=== PATIENT | female | born 1975 | race Caucasian/White ===

== ENCOUNTER → 2016-09-18 | Outpatient (CLI) | payer BC ==
[2016-09-18 13:18] LABS: BASO % 0.2 %; BASO ABS # 0.02 K/uL (0-0.2); COMPLETE YES; EOS % 0.6 %; HEMATOCRIT 36.8 % (37-47); IG% 0.2 %; LYMPH % 20.3 %; LYMPH ABS # 1.68 K/uL (1.2-3.4); MEAN CORPUSCULAR HEMOGLOBIN 32.5 pg (25-34); MEAN CORPUSCULAR HGB CONC 35.3 g/dl (32-36); MEAN PLATELET VOLUME 9.6 fL (7.4-10.4); MONO % 5.3 %; NEUT % 73.4 %; PLATELET COUNT 288 K/uL (130-400); WHITE BLOOD COUNT 8.28 K/uL (4.8-10.8)
[2016-09-21 13:25] LABS: CHLAMYDIA TRACH RNA*** NOT DETECTED (NOT DETECTED); GC (NEIS GONORRHOEAE)RNA** NOT DETECTED (NOT DETECTED)
== END | disposition home or self-care (01) ==
LOC: C.LAB1850 11:32
PROVIDERS: ATTEND Obstetrics & Gynecology
DX: O09.529 Supervision of elderly multigravida, unspecified trimester (principal); O23.40 Unspecified infection of urinary tract in pregnancy, unspecified trimester

== ENCOUNTER → 2016-10-16 | Outpatient (CLI) | payer BC ==
[2016-10-16 16:28] LABS: GTGD 50 Grams
== END | disposition home or self-care (01) ==
LOC: C.LAB1850 14:32
PROVIDERS: ATTEND Obstetrics & Gynecology
DX: O09.522 Supervision of elderly multigravida, second trimester (principal)

== ENCOUNTER → 2017-01-11 | Outpatient (CLI) | payer BC ==
[2017-01-11 14:16] LABS: GTGD 50 Grams
== END | disposition home or self-care (01) ==
LOC: C.LAB1850 10:09
PROVIDERS: ATTEND Obstetrics & Gynecology
DX: O09.523 Supervision of elderly multigravida, third trimester (principal); Z3A.00 Weeks of gestation of pregnancy not specified

== ENCOUNTER → 2017-02-21 | Outpatient (CLI) | payer BC ==
[2017-02-21 14:26] LABS: URINE APPEARANCE CLEAR (CLEAR); URINE BILIRUBIN NEG (NEG); URINE COLOR YELLOW; URINE EPITHELIAL CELL AUTO 20-30 /lpf (0-5); URINE NITRITE NEG (NEG); URINE PH 7.5 (4.5-7.5); URINE SPECIFIC GRAVITY 1.013 (1.000-1.030); UROBILINOGEN NEG (NEG)
[2017-02-21 14:28] LABS: MANUAL MICROSCOPIC REQUIRED? NO; REVIEW REQ? NO
== END | disposition home or self-care (01) ==
LOC: C.LABSPEC 13:33
PROVIDERS: ATTEND Obstetrics & Gynecology
DX: O09.523 Supervision of elderly multigravida, third trimester (principal); Z3A.00 Weeks of gestation of pregnancy not specified

== ENCOUNTER → 2017-03-08 | Outpatient (CLI) | payer BC | END | disposition home or self-care (01) | LOC: C.LABSPEC 10:50 | PROVIDERS: ATTEND Obstetrics & Gynecology | DX: O09.523 Supervision of elderly multigravida, third trimester (principal); Z3A.00 Weeks of gestation of pregnancy not specified ==

== ENCOUNTER 2017-04-01 15:27 | Inpatient (IN) | payer BC ==
[~2017-04-01] VITALS: Ht 165.1 cm; Wt 64.5 kg
[2017-04-01 16:28] VITALS: Ht 165.1 cm; Wt 64.5 kg
[2017-04-01 16:46] LABS: HEMATOCRIT 35.7 % (37-47); MEAN CELL VOLUME 93.7 fL (80-100); MEAN CORPUSCULAR HEMOGLOBIN 32.5 pg (25-34); MEAN CORPUSCULAR HGB CONC 34.7 g/dl (32-36); MEAN PLATELET VOLUME 10.7 fL (7.4-10.4); PLATELET COUNT 175 K/uL (130-400); RED BLOOD COUNT 3.81 M/uL (4.2-5.4); WHITE BLOOD COUNT 8.79 K/uL (4.8-10.8)
[2017-04-01] MEDS ORDERED: OXYTOCIN 30 UNITS/500ML NSS IV ONE (19:15)
[2017-04-01] MEDS ORDERED: BENZOCAINE 20% AER SPR 82.5 GM CAN EXT PRN (20:00)
[2017-04-01] MEDS ORDERED: SUPERCREAM 0.870 % 15GM JAR EXT PRN (20:00)
[2017-04-01] MEDS ORDERED: DIPHTHERIA/TETANUS/PERTUSSIS 0.5 ML SYR/VIAL IM. ONE (20:00)
[2017-04-01] MEDS ORDERED: OXYTOCIN 30 UNITS/500ML NSS IV PRN (20:00)
[2017-04-01] MEDS ORDERED: HYDROCORTISONE ACETATE 25 MG SUPP PR PRN (20:00)
[2017-04-01] MEDS ORDERED: IBUPROFEN 600 MG TAB PO PRN (20:00)
[2017-04-01] MEDS ORDERED: ACETAMINOPHEN/CODEINE 300/30MG TAB PO PRN ×2 (20:00)
[2017-04-01] MEDS: DOCUSATE SODIUM 100 MG CAP PO SCH (20:00)
[2017-04-01] MEDS ORDERED: ACETAMINOPHEN 325 MG TAB PO PRN (20:00)
[2017-04-01] MEDS ORDERED: LANOLIN OINT EXT PRN ×2 (20:00)
--- NOTE | 2017-04-01 20:10 | Vaginal Delivery Summary ---
Vaginal Delivery Summary Findings: Viable male with Apgars of 9 and 9 delivered spontaneously over a midline second-degree laceration core blood samples obtained. Placenta delivered spontaneously. Laceration repair with 4-0 Vicryl in a routine fashion. Estimated blood loss 300 cc. Sponge and needle count is correct. Labor note: The patient is a 42-year-old 3 para 1102 with an EDC of by first trimester ultrasound who was admitted in active labor. Patient states she had been having prodromal contractions for the previous 12 hours but then increased in intensity just prior to discharge. Patient is not ruptured membranes or vaginal bleeding. The patient's last delivery was a 36 week delivery. She was offered prophylactic 17 hydroxyprogesterone injections to decrease risk of but the patient declined. The patient declined any genetics evaluation for advanced maternal age. The patient declined to follow maternal age greater than 40 protocol and declined. Nonstress tests, growth scan ultrasounds, and third trimester amniotic fluid indices. Patient's blood type is O- antibody negative, she declined RhoGAM stating the father of the baby was Rh-. Hepatitis B negative rubella immune, normal 1 hour Glucola 2 , neg 3rd trimester beta strep culture. Upon admission the patient was 5 cm dilated 100% effaced and 0 station. Tracing was category 1. Patient ambulated for about 2 hours and was rechecked with no cervical change. She had artificial rupture membranes with clear fluid. Over the next hour the patient progressed both dilatation and began her second stage. She pushed for approximately 10 minutes delivering a viable male infant with description as above cord was clamped and cut cord blood samples obtained. Placenta was delivered spontaneously. Inspection of the perineum showed a midline second-degree laceration, this was repaired with 4-0 Vicryl in a routine fashion. Estimated blood loss 300 cc. Sponge and needle count was correct.
[2017-04-01 22:20] VITALS: BP 112/64; PULSE 83; TEMP 36.7
[2017-04-01 23:30] VITALS: BP 101/58; PULSE 69; TEMP 36.6
[2017-04-02] VITALS (7 sets, daily range): BP systolic 87–143; BP diastolic 48–78; PULSE 54–64; TEMP 36.6–36.9; O2SAT 97–99
--- NOTE | 2017-04-02 05:51 | OB/GYN Progress Note ---
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 Subjective conversation w/ patient, physical exam, chart review, lab review Ambulation: limited ambulation (to bathroom thus far) Voiding: no voiding problems Passing Gas: Yes Diet Tolerance: Regular Diet Lochia: Moderate (small to moderate per pt) Feeding Type: Breast Feeding Pain: Occasional low abd cramping Review of Systems Constitutional: No fever, No chills Respiratory: No cough, No shortness of breath Cardiac: No chest pain Abdomen: No nausea, No vomiting, No diarrhea Female : No dysuria Objective Vital Signs Date Time Temp Pulse Resp B/P (MAP) Pulse Ox O2 Delivery O2 Flow Rate FiO2 04/02/17 03:40 36.9 63 16 91/52 (65) 04/01/17 23:30 36.6 69 16 101/58 (72) 04/01/17 23:30 Room Air 04/01/17 22:20 36.7 83 18 112/64 (80) Physical Exam General Appearance: WELL-APPEARING, WD/WN, NO APPARENT DISTRESS Respiratory/Chest: lungs clear, normal breath sounds Cardiovascular: regular rate, rhythm Abdomen: normal bowel sounds, non tender, soft Fundus: Firm, Tender (minimal), Relation to Umbilicus (at umbilicus) Extremities: normal range of motion, non-tender, no pedal edema, no calf tenderness Laboratory Results Last 24 Hours Test 04/01/17 16:36 04/02/17 04:44 White Blood Count 8.79 K/uL Red Blood Count 3.81 M/uL Hemoglobin 12.4 g/dL Hematocrit 35.7 % Mean Corpuscular Volume 93.7 fL Mean Corpuscular Hemoglobin 32.5 pg Mean Corpuscular Hemoglobin Concent 34.7 g/dl RDW Standard Deviation 46.5 fL RDW Coefficient of Variation 13.6 % Platelet Count 175 K/uL Mean Platelet Volume 10.7 fL Assessment and Plan Post- Day Number: 1 Continue Routine Care: 42yo s/p , now PPD #1. - Blood type O neg. Has previously declined RhoGAM due to also Rh negative. GBS negative. Rubella immune. - Vital signs reviewed and stable. Relative hypotension most recently. Encourage PO fluids. - Pain/cramping controlled without PO meds thus far. - No leg swelling or tenderness on calf palpation. Encourage ambulation. - Encourage breast feeding. - Hemoglobin preop 12.4, post-delivery pending. Bleeding has improved. Continue to monitor clinically. - Continue routine post-vaginal delivery care. - Pt agreed with above plan, all current questions answered. Earnest Irvin MD, PGY1 Deposition Operator Physician Supervision Note: I interviewed and examined the patient. Discussed with Dr. Jonas and agree with findings and plan as documented in the note. Any exceptions or clarifications are listed here: [None] Documented By: Addi Salter Resident Tracking Resident Involvement: Resident Care Provided Care Provided: OB Delivery (morning rounds)
[2017-04-02] MEDS: DOCUSATE SODIUM 100 MG CAP PO SCH ×2 (07:55→19:22)
[2017-04-02] MEDS: PRENATAL VITAMIN TAB PO SCH (07:55)
[2017-04-02] MEDS: FERROUS SULFATE 325 MG TAB PO SCH (07:55)
[2017-04-02 09:19] LABS: HEMATOCRIT 36.1 % (37-47)
[2017-04-02] MEDS ORDERED: BISACODYL 5 MG TABEC PO SCH (20:00)
--- NOTE | 2017-04-03 07:08 | OB/GYN Progress Note ---
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 Subjective conversation w/ patient, physical exam, chart review, lab review Ambulation: limited ambulation (to bathroom) Voiding: no voiding problems Passing Gas: Yes Diet Tolerance: Regular Diet Lochia: Small Feeding Type: Breast Feeding Pain: denies much pain/cramping Review of Systems Constitutional: No fever, No chills Respiratory: No cough, No shortness of breath Cardiac: No chest pain Abdomen: No nausea, No vomiting, No diarrhea Female : No dysuria Objective Vital Signs Date Time Temp Pulse Resp B/P (MAP) Pulse Ox O2 Delivery O2 Flow Rate FiO2 04/02/17 23:40 36.7 60 16 95/57 (70) 97 Room Air 04/02/17 20:40 36.7 63 16 108/71 (83) 97 Room Air 04/02/17 20:40 Room Air 04/02/17 15:30 36.7 55 18 143/78 (99) 99 Room Air 04/02/17 15:30 99 Room Air 04/02/17 11:29 36.6 54 18 104/64 (77) 99 Room Air 04/02/17 08:00 Room Air 04/02/17 08:00 110/72 (85) 04/02/17 07:16 36.6 64 16 87/48 (61) 98 Room Air Physical Exam General Appearance: WELL-APPEARING, WD/WN, NO APPARENT DISTRESS Respiratory/Chest: lungs clear, normal breath sounds Cardiovascular: regular rate, rhythm Abdomen: normal bowel sounds, non tender, soft Fundus: Firm, Non-Tender, Relation to Umbilicus (approx two down) Extremities: normal range of motion, non-tender, no pedal edema, no calf tenderness Laboratory Results Last 24 Hours Test 04/02/17 08:52 Hemoglobin 12.1 g/dL Hematocrit 36.1 % Assessment and Plan Post- Day Number: 2 Continue Routine Care: 42yo s/p , now PPD #2. - Blood type O neg. Has previously declined RhoGAM (and babys blood type is A negative). GBS negative. Rubella immune. - Vital signs reviewed and stable, including BP variability. Will discuss on rounds. - Pain controlled without PO meds thus far. - No leg swelling or tenderness on calf palpation. Encourage ambulation. - Encourage breast feeding. - Hemoglobin preop 12.4, post-delivery 12.1. Bleeding has improved. Continue to monitor clinically. - Continue routine post-vaginal delivery care. - Pt agreed with above plan, all current questions answered. Earnest Irvin MD, PGY1 Sash Installer Physician Supervision Note: I was present with Dr. Irvin during the history and exam. I discussed the case with the resident and agree with the findings and plan as documented in the note. Any exceptions or clarifications are listed here: PPD#2 doing well. Discharge home today, instructions discussed. Documented By: Dyana Belle Resident Tracking Resident Involvement: Resident Care Provided Care Provided: OB Delivery (morning rounds)
[2017-04-03 07:45] VITALS: BP 100/64; PULSE 60; TEMP 36.4; O2SAT 98
--- NOTE | 2017-04-03 08:29 | Discharge Instructions ---
Discharge Instructions Date of Service Apr 03, 2017. Admission Reason for Admission: R/O Labor Discharge Discharge Diagnosis / Problem: Recovery from vaginal delivery Discharge Goals Goal(s): Routine recovery after delivery Medications Continue Dispensed Medications: supercream, dermaplast, tucks, lansinoh Activity Recommendations Activity Limitations: per Instructions/Follow-up section . Instructions / Follow-Up Instructions / Follow-Up ACTIVITY RECOMMENDATIONS: * Gradual return to full activity over the next 2-3 weeks. * No lifting - nothing heavier than baby over the next 2-3 weeks. * Do not engage in vigorous exercise, sexual activity or sports until cleared by your physician. * Do not drive or operate any motorized equipment until cleared by your physician. * You may shower/bathe daily. MEDICATIONS: For discomfort or pain, you may use Acetaminophen (Tylenol), Ibuprofen (Advil), or Naproxen (Aleve) following the package directions. For constipation you may use Colace following the package directions. BREAST CARE: If you are not breast feeding: * Wear a supportive bra 24 hours a day for one to two weeks. * Avoid stimulating your breasts and nipples as much as possible during the first few weeks after delivery. * When taking a shower, have the warm water hit your back, not breasts. * When your breasts feel full, apply ice packs. Usually three to four times a day helps ease the discomfort. * Take a mild pain medication (Tylenol / Motrin) when you are uncomfortable. If breast feeding: * Use breast milk to lubricate nipples. Lansinoh cream may be used for sore nipples. You do not need to remove cream prior to breast feeding. If using a different brand of cream, check the label for directions regarding removal of cream prior to nursing. * Wear a supportive bra. * If having problems with breasts or breast feeding, call a loss prevention consultant or your health care provider. EPISIOTOMY CARE: After delivery, if you have an episiotomy (stitches), the following steps will ease discomfort and aid healing. * For the first 24 hours after delivery, place ice packs next to your episiotomy to help reduce swelling. * After the first 24 hour-period, sitz baths, either portable or in the tub, are suggested. A shower with a shower arm sprayed over the episiotomy may be comforting. * Kristi care should be done after each voiding and bowel movement. Squirt warm water from a plastic bottle over the perineum (region of the body between the anus and urinary opening) and pat dry. * Use Dermoplast to ease discomfort. Shake container. [place] directly over the episiotomy. Place a Tucks on a clean sanitary pad next to your episiotomy. SPECIAL CARE INSTRUCTIONS: When you are discharged from the hospital, it is important for you to follow the instructions listed below: * During the first week at home, you should be able to care for yourself and your baby. In addition, the usual light household activities are encouraged. * Limit your activities to the way you feel. Do not try to clean the house or move furniture. Be sensible. * If you actively engage in sports and have done so up until the time of your delivery, you may resume these activities as soon as you feel able. This may take up to one month or even longer. Use good judgment. * Continue to take your vitamins for at least six weeks after the of your baby. * Your diet need not be limited unless you were on a special diet before your delivery. Breast-feeding mothers need around 2500 calories per day and at least 64-80 ounces of fluid per day (8 to 10 glasses). * You should eat foods from the four major food groups. Crash diets or fad diets are to be avoided. Eating lean meats, fresh fruits and vegetables, low-fat dairy products, high fiber foods and a regular exercise program, will help you get back to your pre- weight without putting your health at risk. * Constipation is sometimes a problem after delivery. Take a mild laxative as needed. If breast feeding, Milk of Magnesia is acceptable to use. You may use a suppository or Fleets enema if no episiotomy. * A daily shower or tub bath is suggested. Be sure to thoroughly and gently dry the perineum. * A bloody vaginal discharge will usually continue until around four weeks post . A small amount of bleeding may continue for as long as six weeks. Vaginal discharge changes from the bright red bleeding after delivery to pink then brownish and finally yellowish-pink before becoming white and disappearing. * Bleeding may increase with activity. Your first period may come in 4-8 weeks. If you are breast feeding, your period may be delayed even longer. * [place] (sex) can begin whenever both you and your partner feel comfortable and do not have any form of genital infection. It is recommended that you wait at least six weeks for internal and external healing to occur. If you have questions, please talk to your health care practitioner. A condom should be used to prevent infection and . * Foreplay, gentle intercourse and lubrication is very important the first several times to prevent pain. A water-based lubricant such as K-Y jelly or Astroglide may be used. * If you have RH negative blood and your baby is RH positive, you will receive RHOGAM by injection prior to discharge. The nurse will give you a card to keep with you that has the date and place that you received RHOGAM after delivery. * During your care, you had a Rubella screen done to check for the presence of rubella antibodies in your blood. If your test was negative, you will receive a Rubella vaccine prior to discharge. This vaccine may cause a fever, soreness at the injection site and flu-like symptoms. If these symptoms persist, notify your health care practitioner. is not advised for one month after a Rubella vaccine. * Verbalizes understanding of car seat law as reviewed with patient nursing. * Car Seat hand-out given and reviewed with patient by nursing. * Shaken baby information reviewed with patient by nursing. Call you doctor if: * Heavy bleeding (saturating several pads an hour) or passing clots the size of your fist. * A fever >101 degrees F (38.3 degrees C) on two occasions four hours apart and /or chills. * Unusual pain in the pelvic or vaginal areas. * "Baby Blues" lasting longer than two weeks. If you have any questions or concerns, call your health care practitioner at . FOLLOW UP VISIT: * Please call the office at to schedule a 6 week examination. It is important you keep this appointment. It is important for you to make arrangements for either yearly or twice yearly check-ups thereafter. Current Hospital Diet Patient's current hospital diet: Regular OB Diet Discharge Diet Recommended Diet: Regular OB Diet Pending Studies Studies pending at discharge: no Medical Emergencies . Who to Call and When: Medical Emergencies: If at any time you feel your situation is an emergency, please call 911 immediately. . Non-Emergent Contact Non-Emergency issues call your: Irrigation Supervisor . . "Provider Documentation" section prepared by Earnest Irvin. . VTE Core Measure Inpt VTE Proph given/why not?: Treatment not indicated
[2017-04-03] MEDS: PRENATAL VITAMIN TAB PO SCH (08:42)
[2017-04-03] MEDS: DOCUSATE SODIUM 100 MG CAP PO SCH (08:42)
[2017-04-03] MEDS: FERROUS SULFATE 325 MG TAB PO SCH (08:42)
[2017-04-03 11:49] VITALS: BP_DIAS 64; PULSE 60; TEMP 36.4
== END 2017-04-03 12:34 | disposition home or self-care (01) | DRG 775 ==
LOC: C.OPB 15:27 → C.LD 15:27 → C.OPB 15:54 → C.OBG 22:24
PROVIDERS: ADMIT Obstetrics & Gynecology; ATTEND Obstetrics & Gynecology
PROC: 10E0XZZ Delivery of Products of Conception, External Approach (ICD-10-PCS; principal; 2017-04-01)
PROC: 0KQM0ZZ Repair Perineum Muscle, Open Approach (ICD-10-PCS; principal; 2017-04-01)
DX: O36.0191 Maternal care for anti-D [Rh] antibodies, unspecified trimester, fetus 1 (principal); O26.893 Other specified pregnancy related conditions, third trimester; O70.1 Second degree perineal laceration during delivery; Z37.0 Single live birth; Z3A.39 39 weeks gestation of pregnancy; Z53.20 Procedure and treatment not carried out because of patient's decision for unspecified reasons; Z87.11 Personal history of peptic ulcer disease